=== PATIENT | male | born 1995 | race Caucasian/White ===

== ENCOUNTER → 2017-01-29 | Outpatient (REF) | payer OTHER ==
[2017-01-29 14:02] LABS: SPERM ABNORMAL FORMS WBC'S NOTED
[2017-01-29 14:03] LABS: % NORMAL FORMS 30 % (>=4); IMMOTILITY 3 %; NON PROGRESSIVE MOTILITY (c) 10 %; PROGRESSIVE MOTILITY (a) 87 % (>=32); TOTAL MOTILITY 97 % (>=40)
[2017-01-29 14:04] LABS: SPERM# 93.4 M/Ejac (>=39); TOTAL FUNCTIONAL 41.9 M/Ejac.; TOTAL PROGRESSIVE SPERM 81.2 M/Ejac.
== END ==
LOC: M LAB REF 13:40
PROVIDERS: ATTEND Student in an Organized Health Care Education/Training Program
DX: N46.8 Other male infertility (principal)

== ENCOUNTER → 2017-11-22 | Outpatient (REF) | payer OTHER ==
[2017-11-22 09:45] LABS: % NORMAL FORMS 25 % (>=4); IMMOTILITY 15 %; NON PROGRESSIVE MOTILITY (c) 8 %; PROGRESSIVE MOTILITY (a) 77 % (>=32); SEMEN APPEARANCE OPAQUE (OPAQUE); SEMEN VISCOSITY VISCOUS (LIQUID); SEMEN VOLUME 3.3 ml (4.0-5.0); SPERM ABNORMAL FORMS WBC'S NOTED; SPERM CONCENTRATION 55.5 M/ml (>=15.0); SPERM# 183.3 M/Ejac (>=39); TOTAL FUNCTIONAL 64.2 M/Ejac.; TOTAL MOTILITY 85 % (>=40); TOTAL PROGRESSIVE SPERM 140.5 M/Ejac.; WBC CONCENTRATION >1 M/ml (<=1 M/ml)
== END ==
LOC: M LAB REF 09:03
DX: N46.8 Other male infertility (principal)